=== PATIENT | female | born 1975 | race Caucasian/White ===

== ENCOUNTER 2018-07-24 21:57 | Emergency (ER) | payer BC, SELFPAY ==
[2018-07-24 22:00] VITALS: BP 137/79; PULSE 113; RESP 18; TEMP 37; O2SAT 99; BMI 33.3
--- NOTE | 2018-07-24 22:21 | ED_ITS ---
HPI - Back Pain/Injury General Chief Complaint: Back Pain/Injury Stated Complaint: back pain for a week Time Seen by Provider: 07/24/18 22:20 Source: patient Mode of arrival: ambulatory Limitations: no limitations History of Present Illness HPI Narrative: 43-year-old female here for evaluation of bilateral lower back pain. Patient states that it has been going on for the past week. She states she has tried ibuprofen without any relief. She does have radiation down to her left leg. No bowel symptoms. No fevers. No bladder symptoms. States she feels like she is emptying her bladder when she goes to the bathroom. No abdominal pain. She did not fall. The symptoms gradually came on during the day. Related Data Previous Rx's Medication Instructions Recorded cyclobenzaprine 10 mg PO TID PRN #12 tab 07/24/18 hydrocodone-acetaminophen [Orefield] 1 tab PO Q4-6H PRN #10 tab 07/24/18 prednisone 20 mg PO DAILY 3 Days #3 tab 07/24/18 Allergies Allergy/AdvReac Type Severity Reaction Status Date / Time No Known Drug Allergies Allergy Verified 07/24/18 22:36 Review of Systems Constitutional Denies headache(s) ENT Ears, Nose, Mouth, and Throat: Denies headache(s) Cardiovascular Denies chest pain and Denies dyspnea Respiratory Denies dyspnea Gastrointestinal Gastrointestinal: Denies abdominal pain, Denies nausea and Denies vomiting Genitourinary Denies dysuria, Denies urinary incontinence, Denies urinary hesitancy and Denies vaginal discharge Integumentary/Breasts Denies rash Neurologic Denies headache(s), Reports radicular pain and Reports paresthesias Hematologic/Lymphatic Denies easy bleeding and Denies easy bruising REPLACED BY [facility] Medical History Patient denies medical problems (Acute) Social History Smoking Status: Never smoker Social History Smoking Status: Never smoker Exam Initial Vital Signs Initial Vital Signs: Vital Signs Temperature 98.6 F 07/24/18 22:00 Pulse Rate 113 H 07/24/18 22:00 Respiratory Rate 18 07/24/18 22:00 Blood Pressure 137/79 07/24/18 22:00 Pulse Oximetry 99 07/24/18 22:00 Const General: cooperative, comfortable, well developed and well groomed Orientation: alert and awake HENMT Head: normal to inspection and normocephalic Resp Effort & Inspection: normal respiratory effort Cardio Rate: regular rate Skin Lesions: no lesions Rashes: no rashes Neuro General: alert and awake Cognition: normal cognition Speech: speech normal Gait: normal gait Motor: muscle tone normal throughout Sensory Exam: no sensory deficits noted Extrem General: normal to inspection and capillary refill normal Psych Appearance: grossly normal and well kempt Course Orders Ordered: ED Orders 07/24/18 22:27 Ictotest Urine Stat Urine Microscopic Stat Discontinued Medications Hydrocodone Bitart/Acetaminophen (Orefield 5/325) 1 tab PO NOW ONE Stop: 07/24/18 22:31 Last Admin: 07/24/18 22:41 Dose: 1 tab Ketorolac Tromethamine (Toradol) 30 mg IM NOW ONE Stop: 07/24/18 22:31 Last Admin: 07/24/18 22:40 Dose: 30 mg Vital Signs - 8 hr 07/24/18 22:00 07/24/18 23:37 Temperature 98.6 F 98.9 F Pulse Rate 113 H 93 H Respiratory Rate 18 16 Blood Pressure 137/79 Blood Pressure [Left Arm] 122/76 Pulse Oximetry 99 99 MDM - Back Pain/Injury Lab Data Attestation: I reviewed the patient's lab results. Lab Results 07/24/18 Range/Units 22:27 Urine Ictotest Negative (Negative) Urine RBC 0-1/hpf (0-5/HPF) Urine WBC None seen (0-5/HPF) Urine Bacteria None seen (None) Ur Culture Indicated? Cult not indicated Urine Dip Bedside Urine Glucose Negative Bedside Urine Bilirubin + 1 Bedside Urine Ketone +/- 5 Urine Specific Maud 1.030 Bedside Urine Occult Blood +/- Bedside Urine pH 5.5 Bedside Urine Protein - Negative Bedside Urine Urobilinogen +/- 1mg Bedside Urine Nitrite - Negative Bedside Urine Leukocytes - Negative Esterase MDM Narrative Medical decision making narrative: Patient with history and physical exam consistent with musculoskeletal low back pain. Low suspicion for fracture, metastasis, epidural hematoma or abscess. Low suspicion for cauda equina. Patient did feel somewhat better after Toradol pain medication here in the emergency department. We did discuss the use of anti-inflammatories. For to that she needed contact her primary doctor for follow-up. She was given other return precautions. She expressed understanding and agreement with plan. Discharge Plan Departure Patient Disposition: Home Clinical Impression: Strain of lumbar region Qualifiers: Encounter type: initial encounter Qualified Code(s): S39.012A - Strain of muscle, fascia and tendon of lower back, initial encounter Discharge Date/Time: 07/24/18 23:45 Interventions: ED Discharge Assessment Last Done: 07/24/18 23:45 Instructions: DI for Back Pain With Sciatica Activity Restrictions/Additional Instructions: Take the medications as directed. Contact your primary care doctor for a fo llow-up. Return to the emergency department for any new or worsening symptoms Prescriptions: New cyclobenzaprine 10 mg tablet 10 mg PO TID PRN (Reason: muscle spasm) Qty: 12 RF: 0 hydrocodone-acetaminophen [Orefield] 5-325 mg tablet 1 tab PO Q4-6H PRN (Reason: pain) Qty: 10 RF: 0 prednisone 20 mg tablet 20 mg PO DAILY 3 Days Qty: 3 RF: 0
--- NOTE | 2018-07-24 22:25 | PC.NURSE ---
Dr. Kim at bedside
[2018-07-24 22:27] LABS: Bacteria Urine None Seen; WBC Urine None Seen (0-5/HPF)
[2018-07-24] MEDS: KETOROLAC 60 MG/2 ML VIAL 30 MG IM (22:40)
[2018-07-24] MEDS: HYDROCODONE/ACET 5/325 TABLET 1 TAB PO (22:41)
[2018-07-24 22:45] LABS: Culture Indicated Urine Cult Not Indicated; RBC Urine 0-1/HPF (0-5/HPF)
[2018-07-24 22:47] LABS: Ictotest Urine Negative (Negative)
[2018-07-24 23:37] VITALS: BP 122/76; PULSE 93; RESP 16; TEMP 37.2; O2SAT 99
== END 2018-07-24 23:45 | disposition home or self-care (01) ==
PROVIDERS: Emergency Provider Emergency Medicine
DX: S39.012A Strain of muscle, fascia and tendon of lower back, initial encounter (principal)
CPT/HCPCS: 81003; 81015; 96372; 99282; 99283; J1885